=== PATIENT | female | born 1970 | race Caucasian/White ===

== ENCOUNTER → 2017-07-31 | Outpatient (CLI) | payer OTHER ==
[2017-08-01 01:45] LABS: Estradiol <11.8 pg/mL
[2017-08-01 14:28] LABS: Testosterone, Total 152 ng/dL (10-76)
== END ==
LOC: MMGSC 11:48
PROVIDERS: ATTEND Obstetrics & Gynecology
DX: N95.1 Menopausal and female climacteric states (principal)
CPT/HCPCS: 36415; 82670; 83001; 84403